=== PATIENT | male | born 1935 | race Caucasian/White ===

== ENCOUNTER → 2021-12-19 | Outpatient (CLI) | payer MEDICARE ==
[~2021-12-19] MED LIST: CORDARONE 200M200 MG PO; COZAAR50 MG PO; ELIQUIS2.5 MG PO; ENTOCORT EC3 MG PO; IMDUR ER TAB 3030 MG PO; LEVAQUIN500 MG PO; MULTAQ 400 MG400 MG PO; OMEPRAZOLE20 M2 PO; THEO-24300 MG PO; TYLENOL W/CODEIN1 E1 PO; VITAMIN D250000 UNIT PO
[2021-12-19 13:57] LABS: HEMOGLOBIN 12.5 gm/dl (14.0-17.5); RED BLOOD COUNT 3.83 M/UL (4.20-5.50); WHITE BLOOD COUNT 7.3 K/UL (4.5-11.0)
== END ==
LOC: LAB 13:37
PROVIDERS: Nurse Practitioner Family
DX: N30.90 Cystitis, unspecified without hematuria (principal)
CPT/HCPCS: 36415; 71046; 85027; 93005

== ENCOUNTER → 2021-12-19 | Outpatient (CLI) | payer MEDICARE | LOC: WCC 07:25 | DX: N30.40 Irradiation cystitis without hematuria (principal); R31.0 Gross hematuria; I10 Essential (primary) hypertension; Z95.0 Presence of cardiac pacemaker | CPT/HCPCS: G0463 ==